=== PATIENT | female | born 1980 | race Hispanic/Latino ===

== ENCOUNTER 2017-11-25 20:01 | Emergency (ER) | payer BC ==
[2017-11-25 21:14] LABS: HCG,QUAL RESULT NEGATIVE (NEGATIVE)
[2017-11-25 21:16] LABS: APPEARANCE,URINE SLIGHTLY CLOUDY (CLEAR); COLOR,URINE YELLOW (YELLOW)
[2017-11-25 21:17] LABS: BILIRUBIN,URINE NEGATIVE (NEGATIVE); GLUCOSE, URINE (UA) NEGATIVE (NEGATIVE); KETONES,URINE NEGATIVE (NEGATIVE); LEUKOCYTE ESTERASE ,URINE NEGATIVE (NEGATIVE); NITRATE,URINE NEGATIVE (NEGATIVE); OCCULT BLOOD,URINE NEGATIVE (NEGATIVE); PROTEIN,URINE NEGATIVE (NEGATIVE); UROBILINOGEN,URINE 0.2 mg/dL (0.2-1.0)
[2017-11-25 21:37] LABS: BACTERIA,URINE Rare /HPF (None Seen); RBC,URINE 0-1 /HPF (0-1); SQUAMOUS EPITHELIAL CELL,UR Rare /HPF (0-2); WBC,URINE 0-1 /HPF (0-1)
[2017-11-25] MEDS ORDERED: MAGNESIUM HYDROXIDE 30 ML/UDCUP ONE (22:04)
[2017-11-25] MEDS ORDERED: LIDOCAINE HCL 2% VISCOUS 15 ML UDCUP ONE (22:04)
[2017-11-25 22:10] LABS: BASOPHILS % (AUTO) 0.5 % (0.0-5.0); EOSINOPHILS % (AUTO) 3.9 % (0.0-8.0); LYMPHOCYTES % (AUTO) 20.6 % (21.0-51.0); MEAN CORPUSCULAR HEMOGLOBIN 27.5 pg (27.0-33.0); MEAN CORPUSCULAR HGB CONC 34.8 g/dL (32.0-36.0); MEAN CORPUSCULAR VOLUME 78.8 fL (79-99); MONOCYTES % (AUTO) 4.5 % (3.0-13.0); NEUTROPHILS % (AUTO) 70.5 % (40.0-77.0); PLATELET COUNT (AUTO) 404 K/uL (130-400); RED BLOOD CELL COUNT(AUTO) 4.57 MIL/uL (4.00-5.50); WHITE BLOOD COUNT (AUTO) 14.6 K/uL (4.8-10.8)
[2017-11-25 22:19] LABS: CREATININE 0.6 mg/dL (0.5-1.5)
== END 2017-11-25 23:49 | disposition home or self-care (01) ==
LOC: EDH 20:01
DX: R10.13 Epigastric pain (principal); B96.81 Helicobacter pylori [H. pylori] as the cause of diseases classified elsewhere; R11.0 Nausea; Z90.49 Acquired absence of other specified parts of digestive tract
CPT/HCPCS: 36415; 74176; 80048; 81001; 81025; 85025; 86677

== ENCOUNTER → 2018-12-12 | Outpatient (CLI) | payer BC | END | disposition home or self-care (01) | LOC: RAH 10:03 | PROVIDERS: ATTEND Internal Medicine Gastroenterology | DX: K76.0 Fatty (change of) liver, not elsewhere classified (principal); Z90.49 Acquired absence of other specified parts of digestive tract | CPT/HCPCS: 76700 ==

== ENCOUNTER → 2024-11-26 | Outpatient (CLI) | payer BC ==
[~2024-11-26] MED LIST: ACET-2079 PO; IBUP-2070 PO
--- NOTE | 2024-11-26 11:52 | HMCIMG ---
LUMBAR SPINE RADIOGRAPHS - 5 VIEWS INDICATION: Radiculopathy, lower back pain, segmental and somatic dysfunction of pelvis COMPARISON: None FINDINGS: AP, lateral, bilateral oblique and flexion and extension views. Image is somewhat underexposed, but the radiologic examination is still believed to be of reasonable diagnostic quality. Normal lordotic curvature of the lumbar spine is maintained. Extremely shallow lower lumbar levoscoliosis with apex at the L3 level. Five nonrib-bearing lumbar vertebral bodies are noted. No acute fracture or subluxation identified. Vertebral body heights are well-maintained. Moderate disc height loss at the L5-S1 level and mild at the L3-L4 and L4-L5 levels.. Multilevel mild anterior endplate osteophytic spurring. Multilevel mild to moderate facet disease is most pronounced along the lower lumbar spine levels and secondary low-grade fixed (3 mm) anterolisthesis of L4 upon L5. No radiographic evidence for spondylolysis. IMPRESSION: Degenerative changes as described, without superimposed acute component.
== END | disposition home or self-care (01) ==
LOC: RAH 10:49
PROVIDERS: ATTEND Physical Medicine & Rehabilitation
DX: M47.26 Other spondylosis with radiculopathy, lumbar region (principal); M43.16 Spondylolisthesis, lumbar region; M46.06 Spinal enthesopathy, lumbar region; M41.86 Other forms of scoliosis, lumbar region; M25.78 Osteophyte, vertebrae; M99.03 Segmental and somatic dysfunction of lumbar region; M99.05 Segmental and somatic dysfunction of pelvic region; M54.51 Vertebrogenic low back pain; R29.890 Loss of height
CPT/HCPCS: 72110